=== PATIENT | female | born 1995 | race African-American/Black ===

== ENCOUNTER 2019-06-06 23:56 | Emergency (ER) | payer OTHER ==
[~2019-06-06] VITALS: Ht 162.6 cm; Wt 49.9 kg
[2019-06-07] MEDS ORDERED: MIDAZOLAM HCL 2 MG/2ML VIAL ONE ×2 (00:02→00:39)
[2019-06-07 00:26] LABS: BASOPHILS % (AUTO) 0.6 % (0.0-2.0); EOSINOPHILS % (AUTO) 0.4 % (0.0-6.0); HEMATOCRIT 38 % (33-45); HEMOGLOBIN 12.8 g/dL (11.5-14.8); MEAN CORPUSCULAR HGB CONC 33 g/dl (31.0-36.0); MEAN CORPUSCULAR VOLUME 98 fL (82-100); MONOCYTES # (AUTO) 0.6 /CMM (0.1-1.30); MONOCYTES % (AUTO) 7.4 % (2.0-12.0); NEUTROPHILS # (AUTO) 5.3 /CMM (1.8-8.9); NEUTROPHILS % (AUTO) 66.6 % (43.0-81.0); PLATELET COUNT (AUTO) 303 /CMM (150-450); RED BLOOD CELL COUNT(AUTO) 3.93 MIL/uL (4.0-5.2); WHITE BLOOD COUNT (AUTO) 7.9 K/uL (4.3-11.0)
[2019-06-07] MEDS ORDERED: MIDAZOLAM HCL 2 MG/2ML VIAL IV ONE ×2 (00:30)
[2019-06-07] MEDS ORDERED: IV NS 0.9% 1,000 ML BAG IV ONE (00:30)
[2019-06-07 00:39] LABS: CALCIUM, SERUM 8.3 mg/dL (8.5-10.1); POTASSIUM 3.3 mmol/L (3.5-5.1)
--- NOTE | 2019-06-07 01:11 | NUR ---
Nomi Fernandez- Boyfriend - [phone]
--- NOTE | 2019-06-07 03:00 | NUR ---
pt ambulatory with steady gait. a/ox3. pt ambulatory with steady gait to restroom.
--- NOTE | 2019-06-07 03:00 | NUR ---
pt ok to discharge per dr cardona. IV removed. Catheter intact and site benign. Pressure and 4x4 applied to site. No bleeding noted.Patient discharged to home in stable condition with boyfriend. Written and verbal after care instructions given. Patient verbalizes understanding of instruction.
[2019-06-07 03:01] VITALS: BP 121/68
== END 2019-06-07 03:02 | disposition home or self-care (01) ==
LOC: ER 06-07 00:04
DX: F10.129 Alcohol abuse with intoxication, unspecified (principal); F14.129 Cocaine abuse with intoxication, unspecified; R45.1 Restlessness and agitation; Y90.6 Blood alcohol level of 120-199 mg/100 ml
CPT/HCPCS: 36415; 80048; 80307; 85025; 96374; 99283; J2250 ×2; J7030; G0480